=== PATIENT | female | born 1945 | race Caucasian/White ===

== ENCOUNTER → 2017-07-24 10:43 | Outpatient (CLI) | payer MEDICARE ==
--- NOTE | ~2017-07-24 | HEMODYNAMI ---
PATIENT:CHAITANYA CROCKETT MEDICAL RECORD: [id number] : 47 LOCATION:[facility] ADMISSION DATE: 07/24/17 Generatedon:07/24/201713:57 Patient name: CHAITANYA CROCKETT Patient #: [id number] SSN: D OB: 1945 Date of study: 07/24/2017 Page: Of Hemodynamic Procedure Report Patient Data Patient Demographics Procedure consent was obtained First Name: CHAITANYA Gender: Female Last Name: KEIRA : 1945 Middle Initial: LUDA Age: 71 year(s) Patient #: [id number] Race: Unknown Additional ID: [id number] Contact details Address: [address] [place] [address] State: [place] City: [place] Zip code: [address] Past Medical History Allergies: No known allergies Admission Admission Data Admission Date: 07/24/2017 Admission Time: 10:43 Admit Source: Other Lab Results Lab Result Date: 07/24/2017 Lab Result Time: 10:15 Biochemistry Name Units Result Min Max BUN mg/dl 15 --(--*-)-- 7 18 Creatinine mg/dl 0.9 --(-*--)-- 0.6 1.3 CBC Name Units Result Min Max Hematocrit % 45.4 --(-*--)-- 42 54 Hemoglobin g/dl 15.5 --(-*--)-- 13.5 17.5 Procedure Procedure Types Cath Procedure Diagnostic Procedure LHC LHC w/Coronaries Miscellaneous Procedures Moderate Sedation up to 15 minutes Procedure Description Procedure Date Procedure Date: 07/24/2017 Procedure Start Time: 13:49 Procedure End Time: 13:54 Procedure Staff Name Function Ed Nguyen MD Performing Physician David Ibarra RT Scrub Atul Mock RT Monitor Damien Davison RN Nurse Procedure Data Cath Procedure Fluoroscopy Diagnostic fluoroscopy Total fluoroscopy Time: 1.4 time: 1.4 min min Diagnostic fluoroscopy Total fluoroscopy dose: 311 dose: 311 mGy mGy Contrast Material Contrast Material Type Amount (ml) Isovue 300 43 Entry Location Entry Primary Successful Side Size Upsize Upsize Entry Closure Lyle ccessful Closure Location (Fr) 1 (Fr) 2 (Fr) Remarks Device Remarks Radial Right 6 Fr Mechanical artery Short Compression Estimated blood loss: 5 ml Diagnostic catheters Device Type Used For End Catheter Placement Diagnostic Terumo 5Fr Procedure Broadus 110cm catheter Procedure Complications No complications Procedure Medications Medication Administration Route Dosage Oxygen NC 2 l/min Heparin Flush Bag added to field 2 bags (1000units/500ml NS) 0.9% NaCl I.V. 100 ml/hr Radial Cocktail added to field 1 syringe (Verapomil 2mg/Nitro 400mcg/Heparin 1500units) Fentanyl I.V. 50 mcg Versed I.V. 1 mg Fentanyl I.V. 50 mcg Versed I.V. 1 mg Radial Cocktail I.A. 1 syringe (Verapomil 2mg/Nitro 400mcg/Heparin 1500units) Hemodynamics Rest HGB: 15.5 (g/dl) Heart Rate: 66 (bpm) Pressure Samples Time Site Value (mmHg) Purpose Heart Use Rate(bpm) 13:49 LV 106/1,11 EDP 65 13:50 AO 95/65(79) Pullback 69 13:50 LV 87/6,10 Pullback 69 Gradients Valve Time Site 1 Site 2 Mean SEP/DFP Peak To Heart Use (mmHg) (sec/min) Peak Rate (mmHg) (bpm) Aortic 13:50 LV AO 0 69 87/6,10 95/65(79) Calculations Valve P-P Mean Valve Index Valve Source Name Gradient Area Flow (cm2) Aortic 0 0 Snapshots Pre Cath Intra NCS Post Cath Vital Signs Time Heart Resp SPO2 NIBP (mmHg) Rhythm Pain Sedation Rate (ipm) (%) Status Level (bpm) 13:34:45 67 18 98 124/76(107) NSR 0 (11) 10(A) , No pain 13:38:53 55 17 100 119/78(106) NSR 0 (11) 10(A) , No pain 13:43:01 70 17 98 107/73(87) NSR 0 (11) 10(A) , No pain 13:47:07 70 16 97 106/64(79) NSR 0 (11) 9(A) , No pain 13:51:14 66 18 94 98/60(79) NSR 0 (11) 9(A) , No pain 13:55:16 65 17 94 101/67(81) NSR 0 (11) 10(A) , No pain Medications Time Medication Route Dose Verified Delivered Reason Notes Effectiveness by by 13:40:46 Oxygen NC 2 l/min Ed Quezada Per [facility]. Dusty dos santos MD 13:40:55 Heparin Flush added 2 bags Ed Buffie used for Bag to St. Dusty Davison RN procedure (1000units/500ml field FRAUSTO NS) 13:41:06 0.9% NaCl I.V. 100 Ed Quezada Per ml/hr [facility]. Dusty dos santos MD 13:41:14 Radial Cocktail added 1 Ed Knappie used for (Verapomil to syringe [facility]. Dusty Davison RN procedure 2mg/Nitro field FRAUSTO 400mcg/Heparin 1500units) 13:44:58 Fentanyl I.V. 50 mcg Ed Quezada for sedation St. Dusty Davison RN, MD 13:45:05 Versed I.V. 1 mg Ed [place]appie for sedation St. Dusty Davison RN, MD 13:49:16 Fentanyl I.V. 50 mcg Ed Quezada for sedation St. Dusty Davison RN, MD 13:49:21 Versed I.V. 1 mg Ed [place] for sedation St. Dusty Davison RN, MD 13:49:33 Radial Cocktail I.A. 1 Ed Ed for (Verapomil syringe St. Dusty Nguyen vasodilation 2mg/Manas FRAUSTO MD 400mcg/Heparin 1500units) Procedure Log Time Note 13:11:04 Informed consent obtained and on chart 13:11:10 Admit Source: Other 13:11:24 Diagnostic Cath status Elective 13:11:27 Atul Mock RT(R) sent for patient. Start room use. 13:11:28 Time tracking: Regular hours 13:11:32 Plan of Care:Hemodynamics will remain stable., Cardiac rhythm will remain stable., Comfort level will be maintained., Respiratory function will remain adequate., Patient/ family verbilizes understanding of procedure., Procedure tolerated without complication., Recovers from procedure without complications.. 13:11:54 H&P Date Dictated: 06/27/2017 Within 30 days and on chart., H&P Addendum completed by physician on day of procedure. (MUST COMPLETE FOR ALL OUTPATIENTS). 13:13:19 Lab Result : Hemoglobin 15.5 g/dl 13:: Lab Result : Hematocrit 45.4 % 13:: Lab Result : BUN 15 mg/dl 13:: Lab Result : Creatinine 0.9 mg/dl 13:13:26 Lab results completed and on chart. 13:13:38 Patient allergic to No known allergies 13:28:07 Patient received from Pre/Post Procedure Room to CCL 2 Alert and oriented. Tansferred to table in Supine position. 13:28:08 Warm blankets applied, and julisa hugger turned on for patient comfort. 13:28:09 Correct patient and procedure confirmed by team. 13:28:09 ECG and BP/O2 sat monitors applied to patient. 13:33:27 Vital chart was started 13:33:31 Rhythm: sinus rhythm 13:33:32 Full Disclosure recording started 13:39:43 Pre-procedure instructions explained to patient. 13:39:43 Pre-op teaching completed and patient verbalized understanding. 13:39:45 Family in waiting room. 13:39:46 Patient NPO since Midnight. 13:39:47 Is the patient allergic to Iodine/contrast media? No. 13:39:48 Is patient on blood thinner?No 13:39:50 Patient diabetic? No. 13:39:57 Previous problem with sedation/anesthesia? No ? 13:39:57 Snore? Yes 13:39:58 Sleep apnea? No 13:39:59 Deviated septum? No 13:40:00 Opens mouth fully? Yes 13:40:00 Sticks out tongue? Yes 13:40:02 Airway obstruction? No ? 13:40:03 Dentures? No ? 13:40:05 Modified Celestine's test Ulnar < 7 seconds 13:40:07 Patient pain scale 0/10 ?. 13:40:11 IV patent on arrival in left wrist with 0.9% NaCl at [facility]. 13:40:18 Right Radial & Right Groin area was prepped with chlora-prep and draped in sterile fashion 13:40:19 Alarms reviewed by R. N. 13:40:20 Sharps counted by scrub and verified by R.N. 13:40:26 Use device set Radial Dx 13:40:27 MBrace Wrist Support opened to sterile field. 13:40:28 Acist Manifold opened to sterile field. 13:40:29 Acist Hand Control opened to sterile field. 13:40:29 Tegaderm 4 x 4 opened to sterile field. 13:40:30 Acist Syringe opened to sterile field. 13:40:31 Medline Cath Pack opened to sterile field. 13:40:31 Bag Decanter opened to sterile field. 13:40:32 Terumo 6Fr Slender Glidesheath opened to sterile field. 13:40:32 St Danny 260cm J .035 wire opened to sterile field. 13:40:38 Baseline sample Acquired. 13:40:46 Oxygen 2 l/min NC was administered by Damien Davison RN; Per physician; 13:40:51 Physician arrived 13:40:52 --------ALL STOP TIME OUT------ 13:40:52 Final Timeout: patient, procedure, and site verified with staff and physician. All members of the team are in agreement. 13:40:54 Right Radial & Right Groin site verified by team. 13:40:55 Heparin Flush Bag (1000units/500ml NS) 2 bags added to field was administered by Damien Davison RN; used for procedure; 13:40:57 Physical assessment completed. ASA score P 2 - A patient with mild systemic disease as per Ed Nguyen MD. 13:41:00 Sedation plan: IV Moderate Sedation Versed, Fentanyl 13:41:06 0.9% NaCl 100 ml/hr I.V. was administered by Damien Davison RN; Per physician; 13:41:14 Radial Cocktail (Verapomil 2mg/Nitro 400mcg/Heparin 1500units) 1 syringe added to field was administered by Damein Davison RN; used for procedure; 13:44:58 Fentanyl 50 mcg I.V. was administered by Damien Davison RN; for sedation; 13:45:05 Versed 1 mg I.V. was administered by Damien Davison RN; for sedation; 13:48:32 Zero performed for pressure channel P1 13:49:00 Procedure started. 13:49:07 Local anesthetic to right radial artery with Lidocaine 2% by Ed Nguyen MD.INITIAL ACCESS ONLY 13:49:15 A 6 Fr Short sheath was inserted into the Right Radial artery 13:49:16 Fentanyl 50 mcg I.V. was administered by Damien Davison RN; for sedation; 13:49:21 Versed 1 mg I.V. was administered by Damien Davison RN; for sedation; 13:49:25 A Diagnostic Terumo 5Fr Broadus 110cm catheter was advanced over the wire and used for Procedure. 13:49:33 Radial Cocktail (Verapomil 2mg/Nitro 400mcg/Heparin 1500units) 1 syringe I.A. was administered by Ed Nguyen MD; for vasodilation; 13:49:36 LV gram done using PERALES 13:49:38 Injector settings: Ml/sec: 5, Volume: 15, 13:49:39 LV hemodynamics recorded. 13:50:30 EF : 55 % 13:51:00 LCA angiography performed. 13:52:17 RCA angiography performed. 13:52:23 Catheter removed. 13:52:31 Terumo TR Band Standard opened to sterile field. 13:52:51 Sheath removed intact; hemostasis achieved with Mechanical Compression to the Right Radial artery. 13:52:53 Procedure ended.(Physican Out) 13:53:21 Fluoroscopy time 01.40 minutes. 13:53:24 Fluoroscopy dose: 311 mGy 13:53:24 Flurop Dose total: 311 13:53:27 Contrast amount:Isovue 300 43ml. 13:53:29 Sharps counted by scrub and verified by R.N. 13:53:46 TR band inflated with 10cc of air. 13:53:47 Insertion/operative site no bleeding no hematoma. 13:53:54 Post right radial artery:stable, soft, clean and dry 13:53:56 Post Procedure Pulses reassessed and unchanged 13:53:59 Post-procedure physical assessment completed. ASA score P 2 - A patient with mild systemic disease as per Ed Nguyen MD. 13:54:01 Post procedure rhythm: unchanged. 13:54:03 Estimated blood loss: 5 ml 13:54:04 Post procedure instruction explained to patient.Patient verbalizes understanding. 13:54:06 Patient needs reinforcement of post procedure teaching. 13:54:17 Procedure type changed to Cath procedure, Diagnostic procedure, LHC, LHC w/Coronaries, Miscellaneous Procedures, Moderate Sedation up to 15 minutes 13:54:36 Procedure and supply charges have been captured, reviewed, submitted and are correct. 13:54:38 Procedure Complication : No complications 13:54:40 Vital chart was stopped 13:54:41 See physician's report for complete and final results. 13:54:42 Report given to Pre/Post Procedure Room. 13:54:44 Patient transfered to Pre/Post Procedure Room with Stretcher. 13:54:46 Procedure ended. 13:54:46 Full Disclosure recording stopped 13:54:51 End room use (Document Last) Device Usage Item Name Manufacture Quantity Catalog Hospital Part Current Minimal Lot# / Number Charge Number Stock Stock Serial# Code [place] [address] 140-0250-00 924316 47850 [id number] 5 Wrist Vascular Support Dynamics Acist Acist 1 58638 194443 499760 620792 5 Manifold [employer] Inc Acist Hand Acist 1 11672 704786 102825 647930 5 Control [employer] Inc Tegaderm 4 3M 1 1626W 129801 054214 187555 5 x 4 Acist Acist 1 46348 442972 390480 134198 20 Syringe Medical [employer] Inc Medline Cardinal 1 [id number] 786191 82221 536660 5 Cath Pack Health Bag Microtek 1 2002S 179123 60167 080381 5 Decanter [employer]. Terumo 6Fr Terumo 1 [id number] 922716 053537 275337 [address] St Danny 1 113156 598291 343724 705907 30 260cm J .035 wire Diagnostic Terumo 1 40-3400 [id number] 418627 606786 5 Terumo 5Fr Broadus 110cm catheter Terumo TR Terumo 1 [id number] 304620 454157 442496 40 Band Standard Signature Audit [place] Stage Time Signature Unsigned Intra-Procedure 07/24/2017 Atul Mock 1:57:09 PM RT(R) Signatures Monitor : Atul Mock RT Signature : Date : Time : [facility] [address] [place] [address]
[2017-07-24 11:16] VITALS: BP 132/70; BMI 30.7
[2017-07-24 11:43] LABS: BASOPHILS 0.4 % (0-2); HEMATOCRIT 45.4 % (36.0-48.0); HEMOGLOBIN 15.5 g/dL (12-16); IMMATURE GRANULOCYTES 0.1 % (0-5); MCH 30.5 pg (26.0-34.0); MCHC 34.1 g/dL (31.0-37.0); MCV 89.4 fL (80.0-100.0); MEAN PLATELET VOLUME 10.1 fL (7.4-10.4); MONOCYTES 7.7 % (2-11); NEUTROPHILS 59.8 % (40-80); PLATELET COUNT 212 10x3/uL (130-400); RBC 5.08 10x6/uL (4.00-5.40); RDW 13.7 % (11.5-14.5); WBC 7.2 10x3/uL (4.8-10.8)
[2017-07-24 12:12] LABS: CALCIUM 8.8 mg/dL (8.5-10.1); CARBON DIOXIDE 26.2 mmol/L (21.0-32.0); CREATININE - SERUM 0.9 mg/dL (0.6-1.3); POTASSIUM - SERUM 4.3 mmol/L (3.5-5.1)
[2017-07-24 12:24] LABS: ANION GAP 11.1 mmol/L (8-16)
--- NOTE | 2017-07-24 14:11 | NUR ---
1410 RECIEVED TO ROOM VIA STRETCHER FROM CLINICAL LABORATORY DIRECTOR WITH TR BAND TO R/WRIST CDI NO BLEEDING NO HEMATOMA NOTED. INSTRUCTED PATIENT TO KEEP RUE STRAIGHT NO BENDING OR FLEXING OF WRIST VSS WITH CHEST PAIN DENIED
--- NOTE | 2017-07-24 14:29 | NUR ---
RESTING QUIETLY WITH EYES CLOSED. TR BAND TO R/WRIST CDI NO BLEEDING NO HEMATOMA NOTED. HR 61 WITH PVC'S BP 122/65 ROOM AIR SAT 96% NO DISTRESS NOTED
--- NOTE | 2017-07-24 14:56 | NUR ---
TR BAND REMAINS TO R/WRIST CDI NO BLEEDING NO HEMATOMA NOTED VSS WITH CHEST PAIN DENIED
--- NOTE | 2017-07-24 15:16 | NUR ---
VSS WITH CHEST PAIN DENIED REPOSITIONED TO SITTING WITH HOB UP 30 DEGREES. SANDWICH AND SODA TO BEDSIDE. TR BAND REMAINS TO R/WRIST CDI NO BLEEDING NO HEMATOMA NOTED.
--- NOTE | 2017-07-24 15:31 | NUR ---
4 CC AIR REMOVED FROM TR BAND WITH NO BLEEDING NO HEMATOMA NOTED. CHEST PAIN IS DENIED WITH VSS FAMILY AT SIDE
--- NOTE | 2017-07-24 15:48 | NUR ---
PIV REMOVED WITH DRESSING APPLIED. 4 CC AIR REMOVED FROM TR BAND WITH NO BLEEDING NO HEMATOMA NOTED. PATIENT DENIED CHEST PAIN AT THIS TIME UP TO GET DRESSED FOR DISCHARGE HOME
--- NOTE | 2017-07-24 16:03 | NUR ---
4 CC AIR REMOVED FROM TR BAND WITH NO BLEEDING NO HEMATOMA NOTED DRESSING APPLIED. VERBAL AND WRITTEN DISCHARGE GONE OVER WITH PATIENT AND . CHEST PAIN IS DENIED. LEFT VIA WC TO PARKING FOR TRANSPORT HOME
--- NOTE | 2017-07-25 08:31 | OP ---
PATIENT NAME: CHAITANYA CROCKETT MEDICAL RECORD: [id number] :47 LOCATION:[facility] ADMISSION DATE: SURGEON: TRISTON CHEATHAM MD DATE OF OPERATION: 07/24/2017 PROCEDURE: Left heart cath, selective coronary angiography, right radial approach. CATHETERS: [place] catheter, radial sheath. Procedure was well tolerated. The patient returned to fragoso. Sheath was removed. TR band was placed. FINDINGS: Left ventriculography 30-degree PERALES view. Normal wall motion, normal systolic function. CORONARY ANATOMY. LEFT MAIN: Left main is free of disease. LAD: Free of disease in the diagonal system. CIRCUMFLEX: Free of disease in the marginal system. RIGHT CORONARY ARTERY: Dominant artery, gives rise to PDA, free of disease. IMPRESSION: Normal systolic function. Normal coronary anatomy. TRANSINT:[id number] Voice Confirmation ID: [id number] DOCUMENT ID: [id number] TRISTON CHEATHAM MD at 0831 CC: [id number] DICTATION DATE: 07/24/17 1359 PAINTER BARREL: 07/24/17 1907 DEP CLI 07/24/17 [facility] [address] [place] [address]
== END | disposition home or self-care (01) ==
LOC: D.CATH 10:43
PROVIDERS: Internal Medicine Interventional Cardiology
DX: I20.9 Angina pectoris, unspecified (principal); R94.30 Abnormal result of cardiovascular function study, unspecified; R06.02 Shortness of breath; Z01.812 Encounter for preprocedural laboratory examination

== ENCOUNTER → 2019-03-29 18:44 | Outpatient (CLI) | payer MEDICARE ==
[2017-07-24 11:16] VITALS: BMI 30.7
== END | disposition home or self-care (01) ==
LOC: D.MAMMO 10:15
PROVIDERS: ATTEND Family Medicine
DX: Z12.31 Encounter for screening mammogram for malignant neoplasm of breast (principal)